=== PATIENT | male | born 1995 | race Hispanic/Latino ===

== ENCOUNTER 2017-11-15 09:20 | Emergency (ER) | payer OTHER ==
[~2017-11-15] VITALS: Ht 175.3 cm; Wt 77.0 kg
[2017-11-15 10:36] LABS: HEMATOCRIT 43.9 % (38.0-50.0); HEMOGLOBIN 15.3 G/DL (12.5-16.6); MCH 30.8 PG (29.0-34.0); MCHC 34.9 G/DL (30.0-36.0); MCV 88.3 FL (86-99); PLATELET COUNT 236 K/uL (156-360); RBC DIS.WIDTH-CV 11.8 % (11.8-14.6); RBC DIS.WIDTH-SD 37.4 % (39-53); RED BLOOD COUNT 4.97 M/uL (4.00-5.50); WHITE BLOOD COUNT 4.5 K/uL (4.1-10.2)
[2017-11-15 10:53] LABS: CHLORIDE 105 mEq/L (99-109); POTASSIUM 4.3 mEq/L (3.7-5.4); SODIUM 141 mEq/L (136-147)
[2017-11-15 10:55] LABS: GLUCOSE 94 mg/dL (70-99)
[2017-11-15 10:59] LABS: CREATININE 0.8 mg/dL (0.6-1.3); GFR ESTIMATE (CALCULATED) > 59 mL/min/ (58.99-99999)
[2017-11-15 11:00] LABS: UREA NITROGEN (BUN) 14 mg/dL (9-23)
[2017-11-15 12:13] LABS: APPEARANCE CLEAR ((CLEAR)); BILIRUBIN NEGATIVE; BLOOD NEGATIVE; COLOR YELLOW ((YELLOW)); GLUCOSE (STRIP) NEGATIVE; KETONES NEGATIVE; LEUKOCYTES NEGATIVE; NITRITE NEGATIVE; PROTEIN (STRIP) NEGATIVE; SPECIFIC GRAVITY 1.014 (1.000-1.030); UCUL ADDED? NO; UROBILINOGEN 0.2 MG/DL (0.2-1.0)
[2017-11-15] MEDS ORDERED: MOTRIN600 MG PO (13:17)
[2017-11-15 13:22] VITALS: BP 147/67
== END 2017-11-15 13:24 | disposition home or self-care (01) ==
LOC: EME 09:20
PROVIDERS: Nurse Practitioner Family
DX: R10.31 Right lower quadrant pain (principal)
CPT/HCPCS: 74176; 80048; 81003; 85027; 99281; 99284